=== PATIENT | female | born 1975 | race Caucasian/White ===

== ENCOUNTER 2024-05-10 11:47 | Emergency (ER) | payer OTHER, SELFPAY ==
[2024-05-10 11:51] VITALS: BP 155/99; PULSE 77; RESP 18; TEMP 36.6; O2SAT 100
--- NOTE | 2024-05-10 12:07 | ED.VIS.LOWEX ---
HPI History of Present Illness Chief Complaint: Lower Extremity Injury Detail of Chief Complaint: Abrupt pain proximal left calf/left popliteal fossa Informant: patient Occured/Mechanism Comment: Patient was walking when she felt a tear/pop Onset/Context/Timing Onset: Yesterday Context: Sudden Onset Timing: Continuous Quality of Pain: Dull and Aching Location: Posterior proximal left leg Current Severity: Mild Maximum Severity: Severe Worsened by: Walking Relieved by: Nothing Associated Symptoms Associated Symptoms: Positive for Loss of Funtion; Negative for Parasthesia or Weakness Narrative Narrative: Patient states she felt a tear pop proximal posterior leg, calf yesterday. She is concerned she has a blood clot. She felt like something hit the back of her calf. She states is not able to bear weight because of pain. She is now crawling. She denies paresthesia, anesthesia or motor weakness. There is no history of VTE. She has no risk factors for VTE. She denies leg swelling, discoloration. Prior similar symptoms: No Recent Illness/Hospitalization: No PFSH PFSH Allergy/AdvReac Type Severity Reaction Status Date / Time ampicillin (From Polycillin) Allergy Severe sob Verified 05/10/24 11:51 Penicillins (PCN) Allergy Severe sob Verified 05/10/24 11:51 latex Allergy Rash Verified 05/10/24 11:51 Social History (Updated 05/10/24 @ 12:[address] Nazario Lynch MD) household members: family Smoking Status: Never smoker substance use type: does not use ROS ROS ED Cardiovascular Cardiovascular: Denies chest pain or palpitations Respiratory/Chest Respiratory/Chest: Denies cough, dyspnea or dyspnea on exertion Musculoskeletal Musculoskeletal: Reports other Details: Proximal left calf pain Integumentary Denies rash Neurologic Neurologic: Denies paresthesias or weakness EXAM Physical Exam Const Vital Signs: 05/10/24 11:51 Temperature 97.9 F Temperature Source Oral Pulse Rate 77 Respiratory Rate 18 Blood Pressure 155/99 H Blood Pressure Mean 117 Pulse Ox 100 Oxygen Delivery Method Room Air Positive well nourished and well developed Constitutional Narrative: BMI is greater than 40. General Appearance ED: well developed; Negative for NAD HEENT Reports moist mucous membranes normocephalic and atraumatic Eyes PERRL Resp normal respiratory effort Cardio regular rate and regular rhythm Extremity normal to inspection Extremity Narrative: There is no discoloration, asymmetry, leg vein distention, palpable cords or tenderness along the distribution deep venous system. General Extremety ED: Yes weight-bearing difficulty; Negative for cyanosis or edema General Extremity: weight-bearing difficulty; Negative for cyanosis or edema Neuro oriented x3 and CN's II-XII intact bilaterally Sensorium / Orientation: alert Plantar Reflex: Downgoing: bilateral (There is no clonus at the ankle.) Psych mental status grossly normal Skin no wounds MDM MDM MDM Narrative Medical decision making narrative: Differential diagnosis is plantaris muscle tear, DVT, compartment syndrome, muscle strain. History is consistent with plantaris muscle tear. Treatment is nonsteroidal since she has no contraindication i.e. hypertension, diabetes, peptic ulcer disease or renal disease. Crutches were dispensed. There is no history of direct trauma x-rays/imaging is not needed. Since patient's Wells score is -2 and history is consistent with plantaris muscle tear advanced imaging i.e. vascular study was not obtained. Discharge Plan Triage Chief Complaint: Lower Extremity Injury ED Provider: Nazario Lynch Dx/Rx/DC Orders Clinical Impression: Muscle tear, Elevated blood-pressure reading without diagnosis of hypertension Instructions: ED Muscle Strain, Extremity Primary Care Provider: Manjit Head,Out of Referrals: Manjit Head,Out of [Primary Care Provider] - 10-14 Days if not better Activity Restrictions/Additional Instructions: 1. Apply ice 6-8 times a day 2. If you have ibuprofen at home 4 tablets every 8 hours. If you have Aleve at home 2 tablets every 12 hours. Recommend taking pain medicine for the next 3 to 7 days. 3. Bear weight as tolerated 4. You have what is known as a plantaris muscle tear. We have no home-going information regarding this injury. Print Language: Cook Islander Disposition Disposition: Home, Self Care
[2024-05-10] MEDS: Naproxen 500 MG Tablet PO (12:26)
== END 2024-05-10 12:41 | disposition home or self-care (01) ==
LOC: ED 12:39
PROVIDERS: Emergency Provider Emergency Medicine; Referring Provider Emergency Medicine; Visit Provider Emergency Medicine
DX: S86.912A Strain of unspecified muscle(s) and tendon(s) at lower leg level, left leg, initial encounter (principal); M79.662 Pain in left lower leg; R03.0 Elevated blood-pressure reading, without diagnosis of hypertension; X58.XXXA Exposure to other specified factors, initial encounter; Y93.01 Activity, walking, marching and hiking
CPT/HCPCS: 99283

== ENCOUNTER → 2024-06-28 | Outpatient (CLI) | payer OTHER, SELFPAY ==
--- NOTE | 2024-06-28 12:59 | VDLE_ITS ---
Reason For Study: LLE Pain RIGHT LEFT CFV is compressible, spontaneous, phasic, GSV is normal. competent and demonstrates normal CFV is compressible, spontaneous, phasic, augmentation. competent, and demonstrates normal augmentation. FV is compressible, spontaneous, phasic, competent and demonstrates normal augmentation. POP V is compressible, spontaneous, phasic, competent and demonstrates normal augmentation. T/P Trunk is compressible. PTV is compressible. LT PerV is compressible. VL/Venous Duplex US, Unilateral Interpretation Summary Deep veins of the left lower extremity are patent and compressible segmentally. There is no evidence of left lower extremity deep vein thrombosis. The left great saphenous vein jabari ears patent and compressible segmentally. Ordering Physician: Madalyn King Referring Physician: N/A Performed By: Boston Hayes RVT
== END | disposition home or self-care (01) ==
PROVIDERS: PCP Family Medicine; Referring Provider Physician Assistant Surgical; Visit Provider Physician Assistant Surgical
DX: M79.662 Pain in left lower leg (principal)
CPT/HCPCS: 93971

== ENCOUNTER → 2024-08-13 | Outpatient (CLI) | payer OTHER, SELFPAY ==
--- NOTE | 2024-08-13 14:10 | EKG12_ITS ---
Test Reason : PRE OP Blood Pressure : */* mmHG Vent. Rate : 69 BPM Atrial Rate : 69 BPM P-R Int : 108 ms QRS Dur : 90 ms QT Int : 414 ms P-R-T Axes : 7 -8 4 degrees QTcB Int : 443 ms Sinus rhythm with sinus arrhythmia with short CO Moderate voltage criteria for LVH, may be normal variant ST abnormality, possible digitalis effect Abnormal ECG Confirmed by GENOVEVA WHEATLEY, DINORAH ([id number]), image editor IRENA REECE ([id number]) on 08/14/2024 8:49:00 AM Referred By: Madalyn King Confirmed By: DINORAH TOMAS MD
[2024-08-13 15:46] LABS: Absolute Lymphocyte Count 2.03 X10^3/uL (0.83-4.51); Absolute Neutrophil Count 6.2 X10^3/uL (2.0-7.7); Basophil# 0.05 X10^3/uL; Basophil% 0.5 % (0-1); Eosinophil# 0.33 X10^3/uL; Eosinophils% 3.6 % (0-5); Hematocrit 38.6 % (37-47); Hemoglobin 12.4 g/dL (12.0-15.0); Lymphocyte # 2.03 X10^3/ul (0.83-4.51); Lymphocyte % 21.9 % (19-41); Mean Corp Hgb Conc 32.1 g/dL (32-36); Mean Corpuscular Hgb 28.6 pg (27.0-32.0); Mean Corpuscular Volume 89.1 fL (81-99); Mean Platelet Vol. 9.4 fl (6.2-12.0); Monocyte# 0.69 X10^3/uL; Monocyte% 7.4 % (0-10); NRBC Flagged by Analyzer 0 % (0-5); Neutrophil # 6.15 X10^3/uL (2.7-7.7); Neutrophil % 66.2 % (47-70); Platelet Count 310 K/mm3 (150-450); RBC Distribution Width CV 12.6 % (11.6-14.6); RBC Distribution Width SD 41.4 fl (35.1-43.9); Red Blood Count 4.33 M/mm3 (4.2-5.4); White Blood Count 9.3 K/mm3 (4.4-11.0)
[2024-08-13 16:56] LABS: Anion Gap 9 (5-15); BUN 14 mg/dL (4-19); BUN/Creat Ratio 22.6 RATIO (10-20); Calcium,Total 9.9 mg/dL (7.6-11.0); Carbon Dioxide 23.7 mmol/L (21.0-32.0); Chloride 105 mmol/L (98-108); Creatinine, Serum 0.62 mg/dL (0.70-1.20); EST Glomerular Filtration Rate 108 (>60); Glucose 91 mg/dL (70-99); Potassium 4.3 mmol/L (3.3-5.1); Sodium Level 137 mmol/L (133-145)
== END | disposition home or self-care (01) ==
PROVIDERS: PCP Family Medicine; Referring Provider Physician Assistant Surgical; Visit Provider Physician Assistant Surgical
DX: Z01.810 Encounter for preprocedural cardiovascular examination (principal); Z01.818 Encounter for other preprocedural examination
CPT/HCPCS: 36415; 80048; 85025; 93005

== ENCOUNTER 2024-10-03 17:08 | Emergency (ER) | payer OTHER, SELFPAY ==
[2024-10-03 17:10] VITALS: BP 159/92; PULSE 95; RESP 18; TEMP 36.1; O2SAT 100
--- NOTE | 2024-10-03 17:31 | ED.VIS.LOWEX ---
HPI History of Present Illness Chief Complaint: Lower Extremity Injury Informant: patient and spouse/S.O. Narrative Narrative: 49-year-old female presenting to the emergency room with left leg swelling. Patient states that she underwent meniscal surgery with Dr. Valentine. She has been in a leg brace. She notes that since surgery she has had increased swelling of the left leg. She notes some discomfort particular over the medial calf where the strap of her brace is set and is more swollen there. She was at physical therapy today and advised her to come to emergency for the evaluation of possible blood clot. Patient states that even before surgery when she would sit at work at her desk she would have some leg swelling. She notes some reddish discoloration of the left foot when she stands and the blood goes to my leg. No history of DVT or PE. She denies any dyspnea or chest pain. PFSH PFSH Allergy/AdvReac Type Severity Reaction Status Date / Time ampicillin (From Polycillin) Allergy Severe sob Verified 05/10/24 11:51 Penicillins (PCN) Allergy Severe sob Verified 05/10/24 11:51 latex Allergy Rash Verified 05/10/24 11:51 meloxicam Allergy Anaphylaxis Verified 10/03/24 17:10 Social History household members: family Smoking Status: Never smoker substance use type: does not use ROS ROS ED Constitutional Constitutional ED: Denies chills, fever(s) or weight loss Eyes Eyes: Denies change in vision or diplopia ENT ENT ED: Denies ear pain, rhinorrhea or sore throat Cardiovascular Cardiovascular: Denies chest pain, orthopnea, palpitations or racing heartbeat Respiratory/Chest Respiratory/Chest: Denies cough, dyspnea or orthopnea Gastrointestinal Gastrointestinal: Denies abdominal pain, diarrhea, nausea or vomiting Genitourinary Genitourinary ED: Denies dysuria, hematuria or urinary frequency Musculoskeletal Musculoskeletal: Reports other Details: See history of present illness ; Denies arthralgias or myalgias Integumentary Denies abscess or rash Neurologic Neurologic: Denies headache(s) or weakness Psychiatric Psychiatric: Denies anxiety, depression, suicidal ideation or suicidal thoughts Endocrine Endocrinology: Denies polydipsia, polyphagia or polyuria Allergic/Immunologic Allergic/Immunologic ED: Denies mouth swelling, tongue swelling or urticaria EXAM Physical Exam Const Vital Signs: 10/03/24 17:10 Temperature 97 F L Temperature Source Temporal Pulse Rate 95 Respiratory Rate 18 Blood Pressure 159/92 H Blood Pressure Mean 114 Pulse Ox 100 Positive well nourished, well developed and obese General Appearance ED: well developed and NAD Nutritional Appearance: obese HEENT Reports normocephalic, head/scalp atraumatic and moist mucous membranes Eyes PERRL and EOMs intact bilaterally Neck no lymphadenopathy, supple and no JVD Resp normal respiratory effort and clear to auscultation bilaterally Cardio regular rate, regular rhythm and no murmurs GI normal to inspection, nondistended, normoactive bowel sounds and non-tender Palpation: soft Back/Spine no CVA tenderness and normal ROM Extremity Extremity Narrative: I do not see any evidence of cerulea dolens or albicans. There is swelling of the left leg compared to the right. There is a good dorsalis pedis pulse bilaterally. There is good capillary refill. There are some mild tenderness over the medial skin just inferior to the knee joint. I do not palpate any cords. There is no overlying erythema. General Extremety ED: Yes edema General Extremity: edema left lower extremity moderate Neuro oriented x3 and CN's II-XII intact bilaterally Sensorium / Orientation: alert Motor Exam: strength 5/5 throughout Psych mental status grossly normal Mood & Affect: Negative for depressed or tearful Skin no rashes or lesions noted and no wounds MDM MDM MDM Narrative Medical decision making narrative: Differential diagnosis includes but not limited to acute DVT superficial thrombophlebitis chronic venous insufficiency Phlegmasia alba dolens and phlegmasia cerulea dolens. Venous duplex ultrasound was obtained of the left leg. This was negative for DVT. At this point the patient can be discharged home per instructions to elevate the leg. Follow-up with her orthopedic surgeon as scheduled on Monday. At this point there is most likely some degree of venous insufficiency and mobility and postoperative swelling. History & Record Review Discussion w/independent historian: Patient and Significant other Radiography Diagnostic Testing: Clinical Impression(s) from Imaging Studies Venous Duplex 10/03/24 17:32 IMPRESSION: No deep venous thrombosis identified in the extremity. Reading Location: [id number] Discharge Plan Triage Chief Complaint: Lower Extremity Injury ED Provider: Don Mora Dx/Rx/DC Orders Clinical Impression: Lymphedema Instructions: ED Lymphedema Primary Care Provider: Dandy Solano Referrals: Dandy Solano MD [Primary Care Provider] - As Needed Ryan Valentine DO [Med Staff - Active Staff] - Keep [facility] appointment Print Language: Congolese Disposition Disposition: Home, Self Care
--- NOTE | 2024-10-03 17:32 | US_ITS ---
PROCEDURE: VENOUS DUPLEX IMAG/LIMITED/UNI 10/03/2024 REASON FOR EXAM: F 49 y/o TECHNIQUE: Grayscale color flow and doppler analysis of the left lower extremity. COMPARISON: None FINDINGS: There is no intraluminal echogenicity to suggest the presence of a deep venous thrombosis. Appropriate respiratory variation, augmentation and venous compression is noted. US/Venous Duplex Imag/Limited/Uni IMPRESSION: No deep venous thrombosis identified in the extremity. Reading Location: [id number]
== END 2024-10-03 18:42 | disposition home or self-care (01) ==
PROVIDERS: Emergency Provider Emergency Medicine; PCP Family Medicine; Visit Provider Emergency Medicine
DX: I89.0 Lymphedema, not elsewhere classified (principal); E66.9 Obesity, unspecified
CPT/HCPCS: 93971; 99282